=== PATIENT | male | born 1990 | race Caucasian/White ===

== ENCOUNTER 2018-04-21 17:12 | Emergency (ER) | payer BC ==
[~2018-04-21] VITALS: Ht 188 cm; Wt 93.2 kg
[2018-04-21 17:17] VITALS: BP 125/77; PULSE 73; TEMP 99.1
== END 2018-04-21 18:20 | disposition home or self-care (01) ==
LOC: COL.ER 17:12
DX: S61.211A Laceration without foreign body of left index finger without damage to nail, initial encounter (principal); T24.212A Burn of second degree of left thigh, initial encounter; W26.8XXA Contact with other sharp object(s), not elsewhere classified, initial encounter; Y92.009 Unspecified place in unspecified non-institutional (private) residence as the place of occurrence of the external cause

== ENCOUNTER 2018-05-01 18:23 | Emergency (ER) | payer BC ==
[2018-05-01 18:26] VITALS: BP 122/73; PULSE 81; TEMP 98.1
== END 2018-05-01 18:30 | disposition home or self-care (01) ==
LOC: COL.ER 18:23
DX: S61.211D Laceration without foreign body of left index finger without damage to nail, subsequent encounter (principal); X58.XXXD Exposure to other specified factors, subsequent encounter

== ENCOUNTER 2020-01-21 12:11 | Emergency (ER) | payer BC ==
[~2020-01-21] VITALS: Ht 188 cm; Wt 111.4 kg
[2020-01-21 12:22] VITALS: BP 129/81; TEMP 98.6
[2020-01-21 13:02] LABS: BASO % 0.5 % (0.0-2.0); EOS % 0.2 % (0-4.0); GRAN # 7.3 (1.4-6.5); GRAN % 82.7 % (42.2-75.2); HEMATOCRIT 43.7 % (42.0-52.0); HEMOGLOBIN 14.9 g/dl (13.5-18.0); LYMPH # 0.9 (1.2-3.4); LYMPH % 10.7 % (20.0-51.0); MEAN CELL VOLUME 86 fl (80.0-100.0); MEAN CORPUSCULAR HEMOGLOBIN 29 pg (27.0-31.0); MEAN CORPUSCULAR HGB CONC 34 g/dl (33.0-37.0); MEAN PLATELET VOLUME 9.7 fl (7.4-10.4); MONO # 0.5 (0.1-0.6); MONO % 5.7 % (1.7-9.3); PLATELET COUNT 231 K/mm3 (130-400)
[2020-01-21 13:22] LABS: ALBUMIN 4.2 gm/dL (3.5-5.0); BILIRUBIN,TOTAL 0.9 mg/dL (0.0-1.0); C-REACTIVE PROTEIN 1.2 mg/dL (0.0-0.9); CALCIUM 9.1 mg/dL (8.4-10.2); CREATININE, serum 0.73 (0.66-1.25); POTASSIUM 3.7 mmol/L (3.4-5.0); TOTAL PROTEIN 7.6 gm/dL (6.4-8.2)
[2020-01-21] MEDS ORDERED: FLAGYL500 MG PO (15:14)
[2020-01-21] MEDS ORDERED: CIPRO 500MG TA500 MG PO (15:14)
[2020-01-21] MEDS ORDERED: NORCO 325 MG-51 TAB PO (15:14)
[2020-01-21] MEDS ORDERED: ZOFRAN ODT4 MG PO (15:14)
[2020-01-21 15:56] VITALS: PULSE 78
== END 2020-01-21 15:56 | disposition home or self-care (01) ==
LOC: COL.ER 12:11
PROVIDERS: Emergency Medicine
DX: K52.9 Noninfective gastroenteritis and colitis, unspecified (principal)
CPT/HCPCS: J1170; J2405; J7030; Q9967